=== PATIENT | female | born 1995 | race Hispanic/Latino ===

== ENCOUNTER 2019-07-02 19:30 | Inpatient (IN) | payer MEDICAID, OTHER ==
[2019-07-02] MEDS ORDERED: hydrALAZINE 20 MG/ML VIAL SLOW IVP PRN (21:31)
--- NOTE | 2019-07-02 22:45 | ULT ---
Biophysical profile assessment is reported separately with the concurrent limited OB ultrasound exam. Reference separate report. Transcribed Date/Time: 07/02/2019 11:41 PM
--- NOTE | 2019-07-02 22:45 | ULT ---
Limited Obstetrical ultrasound, with biophysical profile: 12/19/2018 COMPARISON: None HISTORY: Vaginal spotting, patient FINDINGS: A live intrauterine gestation is present, with cardiac activity at 168 bpm. Fetus is in a vertex lie and the placenta is primarily fundal in location. Estimated weight is 3081 g, 13th percentile by Hadlock criteria. By ultrasound, fetus demonstrates a gestational age of 36 weeks 6 days. Biophysical profile score performed which reveals tone score of 2, breathing 2, mov ements 2, and amniotic fluid 2, with total biophysical profile score 8/8. IMPRESSION:. Live intrauterine gestation as above. Biophysical profile score 8/8 As necessary imaging follow-up may be obtained. Transcribed Date/Time: 07/02/2019 11:42 PM
[2019-07-10 20:06] VITALS: BMI 31.8
[2019-07-10] MEDS ORDERED: Butorphanol Tartrate 1 MG/ML VIAL SLOW IVP PRN (21:05)
[2019-07-10] MEDS ORDERED: Promethazine HCl 25 MG/ML VIAL IM PRN (21:05)
[2019-07-10] MEDS ORDERED: Ondansetron PF 4 MG/2 ML Vial IVP PRN (21:05)
[2019-07-10] MEDS ORDERED: NS / Oxytocin 40 units/1000ml 1,000 ML IV PRN (21:05)
[2019-07-10] MEDS ORDERED: hydrALAZINE 20 MG/ML VIAL SLOW IVP PRN (21:05)
[2019-07-10] MEDS ORDERED: Lidocaine 1% (PF) 30 ML VIAL SC PRN (21:05)
[2019-07-10] MEDS ORDERED: Penicillin G Potassium 5 MILL.UNITS in Sodium Chloride 0.9% 100 ML IVPB SCH (21:15)
[2019-07-10] MEDS ORDERED: NS w/ Oxytocin 10 units 500 ML IV SCH (21:15)
[2019-07-10] MEDS ORDERED: Misoprostol 100 MCG TAB VAG SCH (21:30)
[2019-07-10 21:35] LABS: Hemoglobin 11.9 g/dL (12.0-16.0); Mean Corpuscular Hemoglobin 32.6 pg (27.0-31.0); Mean Platelet Volume 7.5 fL (7.4-10.4); Platelet Count 248 thou/uL (130-400); RBC Distribution Width 11.5 % (11.5-14.5); Red Blood Cell (RBC) Count 3.67 mill/uL (4.20-5.40); White Blood Cell (WBC) Count 11.1 thou/uL (4.8-10.8)
[2019-07-10 22:13] LABS: Syphilis Antibody Nonreactive (Nonreactive); Syphilis Antibody Index 0.06 S/CO (<1.00 Non-Reactive)
--- NOTE | 2019-07-10 22:16 | PDOC.FPROB ---
FMR OB H&P: HPI - History of Present Illness Chief Complaint: Post Dates Induction Indentification: 24yo History of Present Illness: Pt presents at 41.0wk by LMP/34wk sono for post dates induction. Pt was late to care. Denies any problems with this . Denies any vaginal pain, bleeding , discharge, loss of fluid. She is not experiencing any contractions at this time. Good movement. GBS+. No ther infections with this . Pt has few borderline pressures at her 06/30 visit but denies any since then. Primary Care Physician: Dr. Navarro FMR OB H&P: Current - Care : 5 Para: 3013 Gestational age: 41.0 Due date: 07/03/2019 Dating Criteria: LMP/34wk sono - OB Labs Blood type: A RH: negative Antibody Screen: positive HIV: negative RPR: negative HepBsAg: negative Rubella: immune Urine drug screen: negative Gonorrhea: negative Chlamydia: negative Pap Smear: No abnormalities GBS: positive - Additional Ultrasound Additional: 34 wk sono Hadlock: 27 FMR OB H&P: History - Past Medical History PMH: Anemia of - OB History OB History: 1st: Spont at 10wks 2-4: at term - SIGN WIRER History SIGN WIRER History: None - Surgical History Sx History: None - Social History Social History: No tobacco, alcohol, or illicit drugs - Family History Family History: Non contributory FMR OB H&P: Medications - Current Home Medications: Medication Instructions Recorded Confirmed Type PNV#24/Iron AA Kady/FA/DHA 1 each PO DAILY 06/15/15 07/10/19 History [ DHA+Complete ] Allergies/Adverse Reactions: Allergies Allergy/AdvReac Type Severity Reaction Status Date / Time No Known Allergies Allergy Unverified 07/11/19 06:40 FMR OB H&P: ROS - Review of Systems General: denies: fever/chills, fatigue Eyes: denies: vision changes, double vision ENT: denies: nasal congestion, rhinorrhea Cardiovascular: denies: chest pain, palpitation, edema Respiratory: denies: cough, shortness of breath Gastrointestinal: denies: abdominal pain, nausea, vomiting Genitourinary (Female): denies: incontinence, dysuria, vaginal discharge, vaginal pain, vaginal bleeding, contractions, vaginal pressure Neurologic: denies: seizures, headache Integumentary: denies: itching, rash Hematologic/Lymphatic: denies: prolonged or excessive bleeding Psychological: denies: depression, anxiety FMR OB H&P: Vital Signs - Maternal Vital signs: Vital Signs - First Documented Temp Pulse Resp BP 98.1 F 78 18 135/65 07/10/19 19:48 07/10/19 19:48 07/10/19 19:48 07/10/19 19:48 - Heart Tones Baseline: 145 Variability: moderate Acceleration: present Deceleration: absent Category: category 1 FMR OB H&P: Physical Exam - Physical Exam General: NAD HEENT: normocephalic and atraumatic, EOMI, grossly normal vision, grossly normal hearing Neck: FROM Heart: RRR, normal S1/S2 General: CTAB, no respiratory distress, good air movement Abdomen: soft, gravid, fundus(cm) Musculoskeletal: normal gait and station, pulses present, FROM in all four extremities Neurological: sensation to pain,touch and proprioception grossly normal, no focal deficit Skin: no rash, good tugor Lymphatic: no unusual bruising or bleeding, no purpura Psychiatric: intact recent and remote memory, good judgement and insight, normal mood and affect - Pelvic Exam SVE: 2/50/-3 Garvey score: 4 Presentation: Cephalic FMR OB H&P: Results - Labs Lab results: Laboratory Results - last 24 hr 07/10/19 07/10/19 21:18 21:18 WBC 11.1 H RBC 3.67 L Hgb 11.9 L Hct 34.1 L MCV 93.0 MCH 32.6 H MCHC 35.0 RDW 11.5 Plt Count 248 MPV 7.5 Blood Type A NEGATIVE FMR OB H&P: A/P - Problem List (1) Post-dates Current Visit: Yes Status: Acute Code(s): O48.0 - POST-TERM Assessment and Plan: Cytotec induction - 25mcg q3hr - stadol for pain - cervical checks q3hr - continuous monitoring (2) Late care Current Visit: Yes Status: Acute Code(s): O09.30 - SUPRVSN OF PREG W INSUFFICIENT ANTENAT CARE, UNSP TRIMESTER (3) Elevated blood pressure reading without diagnosis of hypertension Current Visit: Yes Status: Acute Code(s): R03.0 - ELEVATED BLOOD-PRESSURE READING, W/O DIAGNOSIS OF HTN Assessment and Plan: - normal pressures here, continue to monitor (4) Third trimester Current Visit: Yes Status: Acute Code(s): Z34.93 - ENCNTR FOR SUPRVSN OF NORMAL PREG, UNSP, THIRD TRIMESTER (5) Group B streptococcal infection during Current Visit: Yes Status: Acute Code(s): O98.819 - OTH MATERNAL INFEC/ PARASTC DISEASES COMP PREG, UNSP TRI; B95.1 - STREPTOCOCCUS, GROUP B, CAUSING DISEASES CLASSD ELSWHR Assessment and Plan: Penicillin G - Load with 5 - Cont 2.5q 4 until delivery Discussion: Date/Time: 07/10/19 2212 This H&P was discussed with Dr. Warner and Dr. Kat who agree with the above documentation and plan. Addendum - Attending - Attending Attestation Date/Time: 07/11/19 1024 I personally evaluated the patient this morning, and discussed the management with Dr. Lopes last night. I agree with the History, Examination, Assessment and Plan documented above with any addition or exceptions noted below.
[2019-07-11] MEDS ORDERED: Penicillin G 2.5 MILL.units 2.5 MILL.UNITS in Premix Bag 1 BAG IVPB SCH (01:00)
[2019-07-11] MEDS ORDERED: Lactated Ringer's 1,000 ML IV SCH (01:00)
[2019-07-11 01:29] LABS: HBSAg Index 0.16 S/CO (0-0.99); Hep B Surf Ag Non-Reactive S/CO (NonReactive)
[2019-07-11] MEDS ORDERED: Lidocaine 1% (PF) 30 ML VIAL ONE (03:17)
[2019-07-11] MEDS ORDERED: Carboprost 250 MCG/ML AMP ONE (03:36)
[2019-07-11] MEDS ORDERED: NS / Oxytocin 40 units/1000ml 1,000 ML ONE (03:36)
[2019-07-11] MEDS ORDERED: Misoprostol 200 MCG TAB ONE (03:36)
[2019-07-11] MEDS ORDERED: Methylergonovine 0.2 MG/ML VIAL ONE (03:36)
--- NOTE | 2019-07-11 04:16 | PDOC.OPDEL ---
OB Operative/Delivery Note Delivery Dr/Surgeon: Mark Anthony Navarro Lichorad Anesthesia: none - Additional Findings/Plan Placenta delivered: spontaneous Repaired Obstetrical Laceration: none Estimated blood loss: 250 mL Compilations/Other Findings: Delivering Physician: Mark Anthony Navarro Attending: Remigio Procedure: Spontaneous Vaginal Delivery Anesthesia: none EBL: 250 ml Pre-op Diagnosis: 1. Term intrauterine in labor 2. GBS + 3. Rh negative mother Post-op Diagnosis: 1. Term intrauterine , delivered 2. same as above Indications: A 24 y/o female presents to L&D for induction due to postdates. Delivery Note: This is 24 yo F @ 41.1 wks who delivered a viable M at 0401. Following an uneventful antepartum course, a vigorous male was delivered over an intact perineum in the OA position. Anterior Shoulder and then remainder of the body delivered. No nuchal cord. The head was held down and mouth and nares were bulb suctioned. Cord clamped after delayed cord clamping and cut and cord blood collected. Placenta delivered intact in the Miller presentation with a 3 vessel cord noted. Fundal massage was performed and the fundus was firm. The cervix and vagina were inspected and found to be free of lacerations. went to nursery in good condition for routine care. Apgars were 9/9 at 1 & 5 minutes, respectively. Patient tolerated delivery well and went to after routine recovery/care. Post delivery plan: routine recovery
[2019-07-11] MEDS ORDERED: Adacel (T-DAP) 0.5 ML SYRINGE IM ONE (05:31)
[2019-07-11] MEDS ORDERED: Ondansetron PF 4 MG/2 ML Vial IVP PRN (05:31)
[2019-07-11] MEDS ORDERED: NS / Oxytocin 40 units/1000ml 1,000 ML IV SCH (05:31)
[2019-07-11] MEDS ORDERED: Lanolin Ointment 7 GM TUBE TOP PRN (05:31)
[2019-07-11] MEDS ORDERED: Benzocaine-Menthol 82.5 ML CAN TOP PRN (05:31)
[2019-07-11] MEDS ORDERED: Bisacodyl 10 MG SUPP PR PRN (05:31)
[2019-07-11] MEDS ORDERED: Milk Of Magnesia 30 ML UDCUP PO PRN (05:31)
[2019-07-11] MEDS ORDERED: hydrALAZINE 20 MG/ML VIAL SLOW IVP PRN (05:31)
[2019-07-11] MEDS ORDERED: Misoprostol 200 MCG TAB VAG PRN (05:31)
[2019-07-11] MEDS ORDERED: Preparation H Ointment 28 GM TUBE PR PRN (05:31)
--- NOTE | 2019-07-11 06:10 | PDOC.OBLPN ---
FMR OB Labor PN: Obj - Maternal Vital signs: BP: [] HR: [] RR: [] Tmax: [] Pox: []% on [] Wt: [] FMR OB Labor PN: Data - Labs Lab results: Laboratory Results - last 24 hr 07/10/19 07/10/19 07/10/19 21:18 21:18 21:18 WBC RBC Hgb Hct MCV MCH MCHC RDW Plt Count MPV Syphilis IgG/IgM Ab Nonreactive Hep Bs Antigen Non-Reactive Blood Type A NEGATIVE Antibody Screen POSITIVE H Antibody Identification ANTI-D DUE TO RHOGAM INJECTION 07/10/19 21:18 WBC 11.1 H RBC 3.67 L Hgb 11.9 L Hct 34.1 L MCV 93.0 MCH 32.6 H MCHC 35.0 RDW 11.5 Plt Count 248 MPV 7.5 Syphilis IgG/IgM Ab Hep Bs Antigen Blood Type Antibody Screen Antibody Identification FMR OB Labor PN: A/P - Problem List (1) Post-dates Current Visit: Yes Status: Acute Code(s): O48.0 - POST-TERM (2) Late care Current Visit: Yes Status: Acute Code(s): O09.30 - SUPRVSN OF PREG W INSUFFICIENT ANTENAT CARE, UNSP TRIMESTER (3) Elevated blood pressure reading without diagnosis of hypertension Current Visit: Yes Status: Acute Code(s): R03.0 - ELEVATED BLOOD-PRESSURE READING, W/O DIAGNOSIS OF HTN (4) Third trimester Current Visit: Yes Status: Acute Code(s): Z34.93 - ENCNTR FOR SUPRVSN OF NORMAL PREG, UNSP, THIRD TRIMESTER (5) Group B streptococcal infection during Current Visit: Yes Status: Acute Code(s): O98.819 - OTH MATERNAL INFEC/ PARASTC DISEASES COMP PREG, UNSP TRI; B95.1 - STREPTOCOCCUS, GROUP B, CAUSING DISEASES CLASSD ELSWHR Discussion: Date/Time: 07/11/19 0609 This H&P was discussed with [] and [] who agree with the above documentation and plan.
--- NOTE | 2019-07-11 06:11 | PDOC.LDPN ---
Labor & Delivery Progress Note - Subjective Subjective: painful contractions - Objective Vital signs reviewed and normal: yes General: breathing through contractions Uterine fundus: non tender Dilation: 6 Effacement: 75% Station: 0 FHT: category 1 Mallard contractions every: q1-3 Other exam findings: SROM - Assessment (1) Post-dates Code(s): O48.0 - POST-TERM Current Visit: Yes Status: Acute (2) Late care Code(s): O09.30 - SUPRVSN OF PREG W INSUFFICIENT ANTENAT CARE, UNSP TRIMESTER Current Visit: Yes Status: Acute (3) Elevated blood pressure reading without diagnosis of hypertension Code(s): R03.0 - ELEVATED BLOOD-PRESSURE READING, W/O DIAGNOSIS OF HTN Current Visit: Yes Status: Acute (4) Third trimester Code(s): Z34.93 - ENCNTR FOR SUPRVSN OF NORMAL PREG, UNSP, THIRD TRIMESTER Current Visit: Yes Status: Acute (5) Group B streptococcal infection during Code(s): O98.819 - OTH MATERNAL INFEC/PARASTC DISEASES COMP PREG, UNSP TRI; B95.1 - STREPTOCOCCUS, GROUP B, CAUSING DISEASES CLASSD ELSWHR Current Visit: Yes Status: Acute Plan: continue plan of care, labor augmentation, pitocin for augmentation -: - Pt requesting no epidural, breathing through contractions - Making change - titrating pitocin based on contractions frequency - Cat 1 strip
[2019-07-11] MEDS: Ibuprofen 800 MG TAB PO SCH ×3 (06:22→21:12)
[2019-07-11] MEDS: Docusate Calcium (SURFAK) 240 MG CAP PO SCH ×2 (09:55→21:12)
[2019-07-11] MEDS: Prenatal Vitamin 1 TAB PO SCH (09:55)
[2019-07-11] MEDS ORDERED: Acetaminophen 325 MG TAB PO PRN (10:13)
[2019-07-11] MEDS: Ferrous Sulfate 325 MG TAB PO SCH (21:13)
[2019-07-12] MEDS: Ibuprofen 800 MG TAB PO SCH (05:03)
--- NOTE | 2019-07-12 07:05 | PDOC.PP ---
Post Progress Note Post Day #: 1 Subjective: Recovering well with no concerns. Denies pain. Reports minimal lochia. Tolerating PO well. PO intake tolerated: yes Flatus: yes Ambulation: yes Vital Signs (12 hours) Temp Pulse Resp BP BP Pulse Ox 07/12/19 05:04 98 F 77 18 124/63 07/12/19 00:55 98.6 F 80 16 122/59 L 07/11/19 20:10 97.8 F 68 16 121/58 L 99 Weight Weight 78.925 kg - Physical Examination General: NAD Cardiovascular: RRR Respiratory: clear to auscultation bilaterally, non-labored breathing Abdominal: + bowel sounds, no distention, appropriately TTP Fundus firm & at: below umbilicus Extremities: negative homans (B) Skin: no rash Neurological: no gross focal deficits Psychiatric: normal affect Result Diagrams: 07/10/19 21:18 Additional Labs: Post Labs Blood Type A NEGATIVE 07/10/19 21:18 Hep Bs Antigen Non-Reactive S/CO (NonReactive) 07/10/19 21:18 (1) care and examination Code(s): Z39.2 - ENCOUNTER FOR ROUTINE FOLLOW-UP Status: Acute (2) Rh negative status during Code(s): O26.899 - OTH RELATED CONDITIONS, UNSPECIFIED TRIMESTER; Z67.91 - UNSPECIFIED BLOOD TYPE, RH NEGATIVE Status: Acute (3) Group B streptococcal infection during Code(s): O98.819 - OTH MATERNAL INFEC/PARASTC DISEASES COMP PREG, UNSP TRI; B95.1 - STREPTOCOCCUS, GROUP B, CAUSING DISEASES CLASSD ELSWHR Status: Acute - Assessment/Plan 24 yo G5 now [id number] delivered via 07/11 recovering well in period. care - Continue PNV - Bottle feeding - Desires Nexplanon for contraception - recovering well, no concerns Rh negative - Baby A+ - Rhogam given GBS +, adequate ppx Dispo: Plan for discharge home today with follow up at [facility] in 2 weeks. Addendum - Attending - Attending Attestation Date/Time: 07/12/19 1022 I personally evaluated the patient and discussed the management with Dr. Navarro /Robinson. I agree with the History, Examination, Assessment and Plan documented above with any addition or exceptions noted below.
[2019-07-12] MEDS: Ferrous Sulfate 325 MG TAB PO SCH (10:16)
[2019-07-12] MEDS: Prenatal Vitamin 1 TAB PO SCH (10:16)
[2019-07-12] MEDS: Docusate Calcium (SURFAK) 240 MG CAP PO SCH (10:16)
[2019-07-12 11:40] VITALS: BP 126/60; TEMP 98.8
== END 2019-07-12 10:55 | disposition home or self-care (01) | DRG 807 ==
LOC: L&D 07-10 19:09 → 3SW 07-11 06:30
PROVIDERS: ADMIT Student in an Organized Health Care Education/Training Program; ATTEND Student in an Organized Health Care Education/Training Program
PROC: 10E0XZZ Delivery of Products of Conception, External Approach (ICD-10-PCS; principal; 2019-07-11)
PROC: 3E0334Z Introduction of Serum, Toxoid and Vaccine into Peripheral Vein, Percutaneous Approach (ICD-10-PCS; 2019-07-11)
PROC: 3E0234Z Introduction of Serum, Toxoid and Vaccine into Muscle, Percutaneous Approach (ICD-10-PCS; 2019-07-11)
PROC: 3E0P7VZ Introduction of Hormone into Female Reproductive, Via Natural or Artificial Opening (ICD-10-PCS; 2019-07-11)
DX: O48.0 Post-term pregnancy (principal); Z37.0 Single live birth; Z3A.41 41 weeks gestation of pregnancy; O99.824 Streptococcus B carrier state complicating childbirth; O26.893 Other specified pregnancy related conditions, third trimester; Z67.11 Type A blood, Rh negative; Z23 Encounter for immunization
CPT/HCPCS: 36415; 76805; 76819; 85027; 85461; 86780; 86850; 86870; 86900; 86901; 87340; 90384; 96372; J0595; J2001; J2210; J2540; J2590; J3490

== ENCOUNTER 2019-07-02 20:54 | Day surgery (SDC) | payer OTHER ==
--- NOTE | 2019-07-02 22:52 | PDOC.FPRHP ---
- History of Present Illness Chief Complaint: Poor Dates History of Present Illness: Mrs. Prakash Trotter is a 24 y/o female at 39.5W by LMP, consistent with 34W US, with a history of being late to care who presents to L&D for scheduled elective IOL. Upon reviewing her records, Mrs. Prakash Trotter has poor dating criteria and is not a candidate for elective induction at this time. She was previously scheduled for additional confirmatory imaging at [facility], but failed to attend multiple appointments. She admits to occasional N/V and mild dizziness when arising from bed in the morning, but has not other worrisome complaints such as persistent headaches, fevers, chills, changes in vision, chest pain, SOB, excessive swelling of her hands or feet, loss of fluid or loss of movement. - Allergies/Adverse Reactions Allergies Allergy/AdvReac Type Severity Reaction Status Date / Time Penicillins Allergy Unknown Unverified 07/02/19 21:22 - Home Medications Medication Instructions Recorded Confirmed Type PNV#24/Iron AA Kady/FA/DHA 1 each PO DAILY 06/15/15 06/15/15 History [ DHA+Complete ] - History PMHx: Late to Care, Short Interval PSHx: None FHx: None Social: None Obtained from Clinic Records* - Review of Systems General: reports: fatigue. denies: fever/chills, weight/appetite/sleep changes , night sweats Eyes: reports: other (Patient admits to mild dizziness / visual disturbances, but only when arising from bed in the morning.) ENT: denies: nasal congestion, rhinorrhea Respiratory: denies: cough, congestion, shortness of breath Cardiovascular: denies: chest pain, edema Gastrointestinal: denies: nausea, vomiting, diarrhea, constipation, abdominal pain, GI bleeding Genitourinary: denies: dysuria, polyuria, discharge Skin: denies: rashes Musculoskeletal: denies: pain, stiffness, swelling Neurological: denies: numbness, syncope, weakness - Vital signs BP: [] HR: [] RR: [] Tmax: [] Pox: []% on [] Wt: [] FMR H&P: Results - Labs Result Diagrams: 07/02/19 23:07 07/02/19 23:07 FMR H&P: Upper Level - Plan Date/Time: 07/02/192243 I, [], have evaluated this patient and agree with findings/plan as outlined by internal combustion engine assembler resident. Pertinent changes/additions are listed here.
[2019-07-02 23:15] LABS: #Basophils 0.1 thou/uL (0.0-0.2); #Eosinphils 0.1 thou/uL (0.0-0.7); #Lymphocytes 2.9 thou/uL (1.20-3.40); #Monocytes 0.8 thou/uL (0.11-0.59); #Neutrophils 6.2 thou/uL (1.40-6.50); %Basophils 0.8 % (0.0-1.0); %Eosinophils 0.8 % (0.0-10.0); %Lymphocytes 28.5 % (21.0-51.0); %Monocytes 8.1 % (0.0-10.0); %Neutrophils 61.9 % (42.0-75.0); Hemoglobin 11.4 g/dL (12.0-16.0); Mean Corpuscular HGB CONC 35.9 g/dL (32.0-36.0); Mean Corpuscular Hemoglobin 33.2 pg (27.0-31.0); Mean Corpuscular Volume 92.4 fL (78.0-98.0); Platelet Count 234 thou/uL (130-400); RBC Distribution Width 11.3 % (11.5-14.5); Red Blood Cell (RBC) Count 3.45 mill/uL (4.20-5.40); White Blood Cell (WBC) Count 10.1 thou/uL (4.8-10.8)
[2019-07-02 23:36] LABS: ALT (SGPT) Less than 7 U/L (8-55); AST (SGOT) 11 U/L (5-34); Albumin 3.3 g/dL (3.5-5.0); Alkaline Phosphatase 201 U/L (40-110); Anion Gap 9 mmol/L (10-20); BUN (Urea Nitrogen) 7 mg/dL (7.0-18.7); Bilirubin, Total 0.2 mg/dL (0.2-1.2); Calc. Creatinine Clearance 0 mL/min (70-130); Calcium 8.7 mg/dL (7.8-10.44); Carbon Dioxide 29 mmol/L (22-29); Chloride 105 mmol/L (98-107); Estimated GFR-MDRD Greater than 90; Globulin 2.9 g/dL (2.4-3.5); Glucose 101 mg/dL (70-105); Potassium 4.5 mmol/L (3.5-5.1); Protein, Total 6.2 g/dL (6.0-8.3); Sodium 138 mmol/L (136-145); Uric Acid 3.5 mg/dL (2.6-6.0)
[2019-07-03 00:13] LABS: Creatinine, Urine 42.99 mg/dL (47-110); Protein, Urine Random Quant Less than 10 mg/dL (1-14)
--- NOTE | 2019-07-03 02:10 | PDOC.FPROB ---
FMR OB H&P: HPI - History of Present Illness Chief Complaint: Poor Dates Indentification: History of Present Illness: Mrs. Prakash Trotter is a 24 y/o female at 39.5W by LMP, consistent with 34W US, with a history of being late to care who presents to L&D for scheduled elective IOL. Upon reviewing her records, Mrs. Prakash Trotter has poor dating criteria and is not a candidate for elective induction at this time. She was previously scheduled for additional confirmatory imaging at [facility], but failed to attend multiple appointments. She admits to occasional N/V and mild dizziness when arising from bed in the morning, but has not other worrisome complaints such as persistent headaches, fevers, chills, changes in vision, chest pain, SOB, excessive swelling of her hands or feet, loss of fluid or loss of movement. 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 denies: fever/chills, night sweats, recent trauma Eyes: reports: others (Patient admits to blurry vision and dizziness in the morning when arising from bed - otherwise unremarkable.). denies: eye pain, vision changes ENT: denies: nasal congestion, frequent nose bleed, sinus pain/pressure Cardiovascular: denies: chest pain, edema Respiratory: denies: cough, congestion, shortness of breath Gastrointestinal: reports: cramping, nausea. denies: abdominal pain, diarrhea, constipation Genitourinary (Female): reports: vaginal discharge (Mucous Plug). denies: dysuria, hematuria, vaginal bleeding Musculoskeletal: denies: pain, stiffness, swelling Neurologic: denies: syncope, weakness, loss of counsciousness Integumentary: denies: itching, lesions FMR OB H&P: Vital Signs - Maternal Vital signs: Vitals Documented on L&D - Heart Tones Baseline: 145 Variability: moderate Acceleration: present Deceleration: absent FMR OB H&P: Physical Exam - Physical Exam General: NAD, awake, alert and oriented HEENT: normocephalic and atraumatic, PERRLA, EOMI, MMM, conjunctiva clear, no scleral icterus, grossly normal vision, grossly normal hearing, normal nasal mucosa, oropharynx clear, good dention Neck: supple, FROM, trachea midline, no LAD Chest: non-tender to palpation, no lesions Breast: symmetric, no nipple discharge Heart: RRR, normal S1/S2, no murmurs/rubs/gallops, pulses present General: CTAB, no respiratory distress, good air movement, no rales/rhonchi, no wheezing, no retractions Abdomen: gravid, non-tender, bowel sound present Musculoskeletal: pulses present, FROM in all four extremities, no misalignment/ asymmetry, no atrophy Neurological: sensation to pain,touch and proprioception grossly normal, no tremor, no focal deficit Skin: no rash, no jaundice Lymphatic: no unusual bruising or bleeding, no purpura, no petechia, no LAD Psychiatric: intact recent and remote memory, normal mood and affect FMR OB H&P: Results - Labs Lab results: Laboratory Results - last 24 hr 07/02/19 07/02/19 07/02/19 23:07 23:07 23:40 WBC 10.1 RBC 3.45 L Hgb 11.4 L Hct 31.8 L MCV 92.4 MCH 33.2 H MCHC 35.9 RDW 11.3 L Plt Count 234 MPV 7.0 L Neutrophils % 61.9 Lymphocytes % 28.5 Monocytes % 8.1 Eosinophils % 0.8 Basophils % 0.8 Neutrophils # 6.2 Lymphocytes # 2.9 Monocytes # 0.8 H Eosinophils # 0.1 Basophils # 0.1 Sodium 138 Potassium 4.5 Chloride 105 Carbon Dioxide 29 Anion Gap 9 L BUN 7 Creatinine 0.59 L Estimated GFR (MDRD) Greater than 90 Glucose 101 Uric Acid 3.5 Calcium 8.7 Total Bilirubin 0.2 AST 11 ALT Less than 7 L Alkaline Phosphatase 201 H Serum Total Protein 6.2 Albumin 3.3 L Globulin 2.9 Albumin/Globulin Ratio 1.1 L U Random Total Protein Less than 10 Urine Creatinine 42.99 L FMR OB H&P: A/P - Problem List (1) Status: Acute Disposition: 1. SIUP complicated by Poor Dates, Late to Care -Patient has had inconsistent follow-up and lacks necessary imaging to assess well-being -Patient cannot be induced at this time due to inconsistencies w/ dating criteria -Maternal / Vital Signs WNL -CBC: Pending -CMP: Pending -BPP: Pending -NST: Pending Code: Full Diet: NPO Activity: Ad Jennifer DVT PPx: Not Required Dispo: Monitor patient on L&D and perform necessary BPP and NST. Discussion: Date/Time: 07/03/19209 This H&P was discussed with Dr. Givens PGY-3 and the attending, Dr. Israel, who agree with the above documentation and plan. At this time pt was to have routine testing due to poor dates and being late to care. She has not made these appointments. So we will do NST and get BPP and Growth U/S. See above for full plan. Addendum - Attending - Attending Attestation Date/Time: 07/03/19215 I personally evaluated the patient and discussed the management with Dr. Romo and Dr. Givens I agree with the History, Examination, Assessment and Plan documented above with any addition or exceptions noted below. Patient presented for elective IOL with poor dating. Discussed risk. Patient was suppose to follow up for weekly testing with medically indicated IOL at 41 wks. Reassuring status today. SGA fetus. No evidence of placental insufficiency. Patient to followup weekly at [facility] for monitoring and weekly at [facility] for OV. Patient understands and agrees with plan. Unsure why she was scheduled at this time. Catrachito
[2019-07-03] MEDS ORDERED: FLU VACC QS2019-20(6MOS UP)/PF 60 MCG/0.5 ML SYRINGE IM ONE (09:00)
== END 2019-07-03 00:25 | disposition home or self-care (01) ==
LOC: L&D/OP 20:54
DX: O09.33 Supervision of pregnancy with insufficient antenatal care, third trimester (principal); Z3A.39 39 weeks gestation of pregnancy; Z88.0 Allergy status to penicillin
CPT/HCPCS: 36415; 80053; 82570; 84156; 84550; 85025